=== PATIENT | female | born 1960 | race Caucasian/White ===

== ENCOUNTER → 2016-07-16 | Outpatient (CLI) | payer OTHER ==
[~2016-07-16] MED LIST: ASPIR-LOW81 MG PO; AZO MENOPAUSE1 X PO; BUFFERED ASPIR325 M1 PO; CALCIUM; CALCIUM + D 6001 TA1 PO; CELEXA; LEVOTHYROXINE PO; MULTIPLE VITAMI1 CAP PO; NEURONTIN300 MG/CAP PO; NEXIUM 40MG40 MG PO; PAXIL 20MG20 MG PO; PRILOSEC 20MG20 MG PO; SYNTHROID0.112 MG PO
== END ==
LOC: MC.RAD 07-09 07:00
DX: Z12.31 Encounter for screening mammogram for malignant neoplasm of breast (principal)

== ENCOUNTER → 2016-11-03 | Outpatient (REF) | LOC: WSOH 11-02 16:15 | DX: Z02.89 Encounter for other administrative examinations (principal) ==

== ENCOUNTER → 2016-12-07 | Outpatient (CLI) | payer OTHER | LOC: COL.LAB 06:37 | DX: Z00.5 Encounter for examination of potential donor of organ and tissue (principal) ==

== ENCOUNTER → 2017-02-08 | Outpatient (CLI) | payer OTHER ==
[2017-02-08 07:29] LABS: BASO # 0.1 (0.0-0.2); BASO % 0.6 % (0.0-2.0); EOS # 0.2 (0.0-0.7); EOS % 2.1 % (0-4.0); GRAN # 4.4 (1.4-6.5); HEMATOCRIT 43.1 % (37.0-47.0); HEMOGLOBIN 14.4 g/dl (12.5-16.0); LYMPH # 2.9 (1.2-3.4); LYMPH % 36.2 % (20.0-51.0); MEAN CELL VOLUME 88 fl (80.0-100.0); MEAN CORPUSCULAR HEMOGLOBIN 29 pg (27.0-31.0); MEAN CORPUSCULAR HGB CONC 33 g/dl (33.0-37.0); MONO # 0.5 (0.1-0.6); MONO % 6.7 % (1.7-9.3); PLATELET COUNT 365 K/mm3 (130-400); RED BLOOD COUNT 4.89 M/mm3 (4.10-5.30); WHITE BLOOD COUNT 8.1 K/mm3 (4.8-10.8)
[2017-02-08 07:42] LABS: ADJUSTED CALCIUM 9.6 mg/dL (8.4-10.2); ALBUMIN 4.4 gm/dL (3.5-5.0); BILIRUBIN,TOTAL 1.2 mg/dL (0.0-1.0); CALCIUM 9.9 mg/dL (8.4-10.2); CHOLESTEROL RISK RATIO 4.1; CREATININE, serum 0.7 mg/dL (0.52-1.25); POTASSIUM 4.2 mmol/L (3.4-5.0); TOTAL PROTEIN 7.2 gm/dL (6.4-8.2)
[2017-02-08 08:01] LABS: MUCOUS Present /lpf; PH 5 (5-8); SQUAMOUS EPITHELIAL 0-2 /hpf; URINE APPEARANCE Clear; URINE BACTERIA None Seen /hpf; URINE BILIRUBIN Negative (NEGATIVE); URINE BLOOD Negative (NEGATIVE); URINE COLOR Yellow; URINE GLUCOSE Negative (NEGATIVE); URINE KETONE Negative (NEGATIVE); URINE LEUKOCYTE ESTERASE 2+ (NEGATIVE); URINE PROTEIN(semi-quant) Negative (NEGATIVE); URINE UROBILINOGEN Negative (NEGATIVE)
[2017-02-08 08:08] LABS: COLLECTION METHOD CLEAN CATCH
[2017-02-08 08:11] LABS: THYROID STIMULATING HORMONE 0.556 uIU/mL (0.465-4.680)
== END ==
LOC: COL.LAB 07:05
PROVIDERS: Family Medicine
DX: E03.9 Hypothyroidism, unspecified (principal); I10 Essential (primary) hypertension

== ENCOUNTER 2017-07-12 07:27 | Day surgery (SDC) | payer OTHER ==
[~2017-07-12] VITALS: Ht 160 cm; Wt 63.9 kg
[2017-07-12] MEDS ORDERED: ASPIRIN 81M81 MG/TA2 PO (07:41)
[2017-07-12] MEDS ORDERED: NEXIUM 40MG40 MG PO (07:43)
[2017-07-12] MEDS ORDERED: CALCIUM 600MG+D1 TAB PO (07:43)
[2017-07-12] MEDS ORDERED: SYNTHROID0.112 MG/T PO (07:44)
[2017-07-12] MEDS ORDERED: MULTI VITAMINS1 TAB PO (07:44)
[2017-07-12] MEDS ORDERED: NEURONTIN300 MG/CAP PO (07:44)
[2017-07-12] MEDS ORDERED: PAXIL 20MG20 MG PO (07:45)
[2017-07-12] MEDS ORDERED: PRINIVIL10 MG PO (07:45)
[2017-07-12] MEDS ORDERED: BLACK COHOSH40 MG PO (07:46)
[2017-07-12 08:05] VITALS: BP 127/91; PULSE 97; TEMP 98.1
[2017-07-12 09:44] VITALS: BP 111/89; PULSE 75; TEMP 97.9
[2017-07-12 10:00] VITALS: BP 114/89; PULSE 84
[2017-07-12 10:15] VITALS: BP 114/85; PULSE 78
== END 2017-07-12 10:25 | disposition home or self-care (01) ==
LOC: SDCO 07:27
DX: D12.4 Benign neoplasm of descending colon (principal); K21.9 Gastro-esophageal reflux disease without esophagitis; I10 Essential (primary) hypertension; E03.9 Hypothyroidism, unspecified; Z80.0 Family history of malignant neoplasm of digestive organs
CPT/HCPCS: OP; J2250; J2405; J3010; J7030

== ENCOUNTER → 2017-08-15 | Outpatient (CLI) | payer OTHER ==
[~2017-08-15] MED LIST changes: +ASPIRIN 81M81 MG/TA2 PO; +BLACK COHOSH40 MG PO; +CALCIUM 600MG+D1 TAB PO; +MULTI VITAMINS1 TAB PO; +PRINIVIL10 MG PO; +SYNTHROID0.112 MG/T PO
== END ==
LOC: MC.RAD 14:37
DX: Z12.31 Encounter for screening mammogram for malignant neoplasm of breast (principal)

== ENCOUNTER → 2018-07-20 | Outpatient (CLI) | payer OTHER ==
[2018-07-20 07:33] LABS: MEAN CELL VOLUME 89 fl (80.0-100.0); MEAN CORPUSCULAR HEMOGLOBIN 30 pg (27.0-31.0); MEAN CORPUSCULAR HGB CONC 33 g/dl (33.0-37.0); MEAN PLATELET VOLUME 9.1 fl (7.4-10.4); PLATELET COUNT 392 K/mm3 (130-400); RED BLOOD COUNT 5.07 M/mm3 (4.10-5.30); REDCELL DISTRIBUTION WIDTH-CV 12.6 % (11.5-14.5)
[2018-07-20 07:50] LABS: ALBUMIN 4.6 gm/dL (3.5-5.0); BILIRUBIN,TOTAL 0.6 mg/dL (0.0-1.0); CALCIUM 10.1 mg/dL (8.4-10.2); CREATININE, serum 0.8 (0.52-1.25); POTASSIUM 4.4 mmol/L (3.4-5.0)
[2018-07-20 07:52] LABS: PH 6 (5-8); SQUAMOUS EPITHELIAL 0-2 /hpf; URINE APPEARANCE Clear; URINE BILIRUBIN Negative (NEGATIVE); URINE BLOOD 1+ (NEGATIVE); URINE COLOR Straw; URINE GLUCOSE Negative (NEGATIVE); URINE KETONE Negative (NEGATIVE); URINE LEUKOCYTE ESTERASE 1+ (NEGATIVE); URINE NITRATE Negative (NEGATIVE); URINE PROTEIN(semi-quant) Negative (NEGATIVE); URINE RBC 0-2 /hpf; URINE UROBILINOGEN Negative (NEGATIVE)
[2018-07-20 07:54] LABS: URINE BACTERIA Rare /hpf
[2018-07-20 08:05] LABS: COLLECTION METHOD CLEAN CATCH
[2018-07-20 08:20] LABS: TSH w REFLEX 1.04 uIU/mL (0.465-4.680)
== END ==
LOC: COL.LAB 06:59
PROVIDERS: Family Medicine
DX: Z00.00 Encounter for general adult medical examination without abnormal findings (principal); Z11.59 Encounter for screening for other viral diseases; I10 Essential (primary) hypertension; E03.9 Hypothyroidism, unspecified

== ENCOUNTER → 2018-08-16 | Outpatient (CLI) | payer OTHER | LOC: MC.RAD 07:26 | DX: Z12.31 Encounter for screening mammogram for malignant neoplasm of breast (principal) ==

== ENCOUNTER 2018-10-12 10:59 | Outpatient (RCR) | payer OTHER ==
[~2018-10-12] VITALS: Ht 160 cm; Wt 67.6 kg
[2018-10-12 11:29] VITALS: BP 109/77; PULSE 86; TEMP 98.2
[2018-10-12] MEDS ORDERED: AMOXICILLIN 8751 TAB PO (11:50)
--- NOTE | 2018-10-12 12:33 | NUR ---
Pt herminio abx well. Pt discharged per ambulation.
== END 2018-10-12 12:33 | disposition home or self-care (01) ==
LOC: EUO 10:59
DX: N76.4 Abscess of vulva (principal); I10 Essential (primary) hypertension; F32.9 Major depressive disorder, single episode, unspecified; E03.9 Hypothyroidism, unspecified; G62.9 Polyneuropathy, unspecified
CPT/HCPCS: J0295

== ENCOUNTER → 2019-08-21 | Outpatient (CLI) | payer OTHER ==
[~2019-08-21] MED LIST changes: +AMOXICILLIN 8751 TAB PO
== END ==
LOC: MC.RAD 06:54
DX: Z12.31 Encounter for screening mammogram for malignant neoplasm of breast (principal)

== ENCOUNTER → 2020-08-25 | Outpatient (CLI) | payer BC | LOC: MC.RAD 07:23 | DX: Z12.31 Encounter for screening mammogram for malignant neoplasm of breast (principal) ==

== ENCOUNTER → 2021-09-03 | Outpatient (CLI) | payer BC | LOC: MC.RAD 08:23 | DX: Z12.31 Encounter for screening mammogram for malignant neoplasm of breast (principal) ==